=== PATIENT | male | born 1990 | race African-American/Black ===

== ENCOUNTER 2018-12-04 06:49 | Emergency (ER) | payer SELFPAY ==
[2018-12-04] MEDS ORDERED: DIPHENHYDRAMINE HCL 50 MG/ML VIAL IV ONE (07:17)
[2018-12-04] MEDS ORDERED: NORMAL SALINE 1000 ML 1,000 ML IV ONE (07:17)
[2018-12-04] MEDS ORDERED: METOCLOPRAMIDE HCL INJ/PF 10 MG/2 ML SDV IV ONE (07:17)
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
[2018-12-04 08:39] VITALS: BP 136/86
== END 2018-12-04 08:46 | disposition home or self-care (01) ==
LOC: ER 06:49
DX: S09.90XA Unspecified injury of head, initial encounter (principal); M54.2 Cervicalgia; R51 Headache; V44.5XXA Car driver injured in collision with heavy transport vehicle or bus in traffic accident, initial encounter; Y99.0 Civilian activity done for income or pay; H53.8 Other visual disturbances; R42 Dizziness and giddiness; H53.149 Visual discomfort, unspecified; R25.2 Cramp and spasm
CPT/HCPCS: 70450; 72125; 99284